=== PATIENT | female | born 1980 | race Two or more races ===

== ENCOUNTER → 2016-09-13 | Outpatient (CLI) | payer OTHER ==
--- NOTE | 2016-09-13 15:10 | DX ---
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 The patient has severe dysphagia and upper esophageal sphincter dysfun ction with prior several dilatations. TECHNIQUE: The patient was examined in the lateral projection while ingesting a spoonful of thin graciela um, a couple of ice chips with consistency barium and a spoonful of applesauce coated with barium. Fluoroscopy Time: 2.8 minutes with an exposure dose of 6.00 mGy. COMPARISON STUDY: Video fluoroscopy with speech study, dated July 06, 2016. FINDINGS: There is a mild oral phase delay with eventual propulsion of the bolus into the hypopharynx with some very mild transient pooling in the vallecula and piriform sinuses, and profound upper esop hageal sphincter dysfunction. There is lack of appropriate epiglottic movement, and some inconsistent upper esophageal sphincter opening to allow passage of one of the ice chips and tiny boluses of the applesauce. The patient had to suction the residual contrast. IMPRESSION: Severe pharyngeal dysphagia with absent epiglottic inversion and very poor upper esophage al sphincter function with inconsistent relaxation at the cricopharyngeus impression. There was no as piration observed. Please also refer to the speech therapist's separate assessments and specific recommendations for fol low up.
== END ==
LOC: FIMAGING 10:35
PROVIDERS: ATTEND Internal Medicine Gastroenterology
DX: R13.10 Dysphagia, unspecified (principal); G11.9 Hereditary ataxia, unspecified; K22.4 Dyskinesia of esophagus; Z85.6 Personal history of leukemia; Z92.21 Personal history of antineoplastic chemotherapy
CPT/HCPCS: 92611-GN

== ENCOUNTER → 2016-11-09 | Outpatient (CLI) | payer OTHER | LOC: FIMAGING 10:46 | PROVIDERS: ATTEND Internal Medicine Hematology & Oncology | DX: R13.13 Dysphagia, pharyngeal phase (principal); G32.81 Cerebellar ataxia in diseases classified elsewhere | CPT/HCPCS: 92611-GN ==

== ENCOUNTER 2018-09-19 08:49 | Emergency (ER) | payer OTHER, MEDICAID ==
--- NOTE | 2018-09-19 09:37 | EDPHY ---
H & P Stated Complaint: G-tube malfunction Time Seen by Provider: 09/19/18 08:53 HPI/ROS: CHIEF COMPLAINT: G-tube malfunction HISTORY OF PRESENT ILLNESS: The patient presents the ED with a leaking G-tube. She has a Cook catheter low profile past port type device. The patient denies any complaints of acute pain. She has had some area dermal irritation in the area of her G-tube. REVIEW OF SYSTEMS: A comprehensive 10 point review of systems is otherwise negative aside from elements mentioned in the history of present illness. 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, AML, bone marrow transplant, depression, appy, trach - Social History Smoking Status: Former smoker - Physical Exam Exam: General Appearance: Alert, no distress Gastrointestinal: Abdomen is soft and nontender, no masses, bowel sounds normal , G-tube with leakage through the central cannulation port Neurological: 5/5 strength Skin: Mild area of superficial dermal irritation Musculoskeletal: Neck is supple nontender Extremities: symmetrical, full range of motion Constitutional: Initial Vital Signs Temperature (C) 37.2 C 09/19/18 08:54 Heart Rate 92 09/19/18 08:54 Respiratory Rate 18 09/19/18 08:54 Blood Pressure 103/63 09/19/18 08:54 O2 Sat (%) 96 09/19/18 08:54 O2 Delivery Mode Room Air Allergies/Adverse Reactions: bacitracin Allergy (Verified 09/19/18 08:53) Home Medications: Medication Instructions Recorded Sertraline HCl [Zoloft 100mg (RX)] 02/08/16 Albuterol 04/05/18 levAQUIN (*) 04/05/18 Medical Decision Making Procedures: Procedure: PEG tube replacement Indication: PEG tube failure Description: PEG tube was replaced by myself using standard techniques without complication. Position was verified with a postprocedure x-ray. Patient tolerated the procedure well. ED Course/Re-evaluation: The PEG tube was replaced with a similar device by myself in the emergency department without complication. A KUB with Gastrografin was ordered to verify intragastric orientation. KUB with Gastrografin x-ray was reviewed by myself which demonstrates normal intragastric placement of the PEG tube. Patient will be discharged home with customary aftercare instructions and return precautions. Departure - Departure Disposition: Home, Routine, Self-Care Clinical Impression: PEG tube malfunction Condition: Good Instructions: Percutaneous Endoscopic Gastrostomy Insertion (DC) Additional Instructions: 1. Return to the emergency department for any increasing pain, fever, vomiting or other concerns. 2. Follow up with your primary care provider as scheduled. Referrals: TERRENCE REYNAGA [Other] - As per Instructions
[2018-09-19 10:53] VITALS: BP 99/70
== END 2018-09-19 10:53 | disposition home or self-care (01) ==
PROC: 0D20XUZ Change Feeding Device in Upper Intestinal Tract, External Approach (ICD-10-PCS; principal; 2018-09-19)
DX: K94.23 Gastrostomy malfunction (principal); C92.00 Acute myeloblastic leukemia, not having achieved remission

== ENCOUNTER → 2018-11-11 | Outpatient (CLI) | payer OTHER, MEDICAID | LOC: FIMAGING 14:34 | PROVIDERS: ATTEND Internal Medicine Hematology & Oncology | DX: M25.522 Pain in left elbow (principal) ==